=== PATIENT | male | born 1970 ===

== ENCOUNTER 2021-08-05 11:06 | Day surgery (SDC) | payer MEDICAID ==
[~2021-08-05] VITALS: Ht 170.2 cm; Wt 109.5 kg
[2021-08-05 12:28] VITALS: BP 118/79; PULSE 72; TEMP 98.1
[2021-08-05] MEDS ORDERED: NORCO 325 MG-51 TAB PO (14:14)
[2021-08-05] MEDS ORDERED: MOTRIN 600600 MG/TAB PO (14:14)
[2021-08-05 14:30] VITALS: BP 133/75; PULSE 76; TEMP 98.1
--- NOTE | 2021-08-05 14:30 | NUR ---
Pt returns to [facility] from PACU, drowsy but awakens easily. Reports mild discomfort to abdomen, will continue to monitor, pt provided water. Pt's at bedside. Call light in reach, VSS.
[2021-08-05 14:45] VITALS: BP 132/78; PULSE 74
--- NOTE | 2021-08-05 14:45 | NUR ---
Pt doing well, provided with toast and tolerates well, no nausea. VSS. Pain medication given per orders. Call light in reach.
[2021-08-05 15:00] VITALS: BP 124/59; PULSE 70
[2021-08-05 15:15] VITALS: BP 125/67; PULSE 73
--- NOTE | 2021-08-05 15:15 | NUR ---
Pt more awake and doing well, up to the bathroom and voids without difficulty.
--- NOTE | 2021-08-05 16:00 | NUR ---
Discharge instructions provided to pt and his . Pt requests to walk out, doing well and walks out to the er entrance and left in care of his .
== END 2021-08-05 16:00 | disposition home or self-care (01) ==
LOC: SDCO 11:06
DX: K42.9 Umbilical hernia without obstruction or gangrene (principal); F17.210 Nicotine dependence, cigarettes, uncomplicated; E66.9 Obesity, unspecified
CPT/HCPCS: C1781; J7120